=== PATIENT | male | born 1980 | race American Indian/Alaskan Native ===

== ENCOUNTER 2016-09-30 12:26 | Emergency (ER) | payer SELFPAY ==
[~2016-09-30] VITALS: Ht 160 cm; Wt 107.5 kg
[2016-09-30 13:01] VITALS: Ht 160 cm; Wt 107.5 kg
[2016-09-30] MEDS ORDERED: DEXAMETHASONE 10 MG/ML 1 ML INJ IM ONE (14:00)
[2016-09-30] MEDS ORDERED: KETOROLAC 60 MG INJ IM STA (14:00)
[2016-09-30] MEDS ORDERED: IBUP-1542 PO (14:02)
[2016-09-30] MEDS ORDERED: AMO500 PO (14:02)
[2016-09-30] MEDS ORDERED: ACET1TAB40 PO (14:02)
--- NOTE | 2016-09-30 14:06 | ERD ---
ER Documentation Chief Complaint Date/Time DATE: 09/30/16 TIME: 14:04 Chief Complaint Pt with Fever, ST, CROSS , body ache X last night. HPI This 36-year-old male presents with fever and sore throat and body aches starting last night. ROS All systems reviewed and are negative except as per history of present illness. Medications Home Meds Active Scripts Ibuprofen* (Motrin*) 600 Mg Tab, 600 MG PO Q6, #15 TAB Prov:RAMAN FROST MD 09/30/16 Acetaminophen with Codeine (Acetaminophen-Cod #3 Tablet) 1 Each Tablet, 1 TAB PO Q6H Y for PAIN, #7 TAB Prov:RAMAN FROST MD 09/30/16 Amoxicillin* (Amoxicillin*) 500 Mg Cap, 500 MG PO TID for 10 Days, CAP Prov:RAMAN FROST MD 09/30/16 Physical Exam Vitals Vital Signs Date Time Temp Pulse Resp B/P Pulse Ox O2 Delivery O2 Flow Rate FiO2 09/30/16 13:01 99.4 97 20 131/79 98 Physical Exam Const: [] Alert, [id number]. Head: Atraumatic Eyes: Normal Conjunctiva ENT: Normal External Ears, Nose and Mouth. Tonsils 3+ and airway patent and uvula midline. Tender anterior cervical lymphadenitis Neck: Full range of motion..~ No meningismus. Resp: Clear to auscultation bilaterally Cardio: Regular rate and rhythm, no murmurs Abd: Soft, non tender, non distended. Normal bowel sounds Skin: No petechiae or rashes Back: No midline or flank tenderness Ext: No cyanosis, or edema Neur: Awake and alert Psych: Normal Mood and Affect Results 24 hrs Current Medications Medications (Trade) Dose Ordered Sig/Delon Route PRN Reason Start Time Stop Time Status Last Admin Dose Admin Ketorolac Tromethamine (Toradol) 60 mg ONCE STAT IM 09/30/16 14:00 09/30/16 14:01 Dexamethasone (Decadron) 10 mg ONCE ONCE IM 09/30/16 14:00 09/30/16 14:01 Procedures/MDM Patient was given Toradol 60 mg IM and Decadron 10 mg IM. Patient has signs and symptoms of acute pharyngitis without evidence of abscess, obstruction or hypoxemia. He will be treated with amoxicillin, ibuprofen 10 #3 at home. The patient was stable with no new complaints during the ER course. Clinically, there is no current evidence to suggest meningitis, sepsis, acute abdomen, pneumonia, acute coronary syndrome, pulmonary embolism, or any other emergent condition appearing to require further evaluation or hospitalization. The patient should certainly return for any new or worsening symptoms per the aftercare instructions. They should otherwise follow-up with her primary care doctor for reevaluation this week. Departure Diagnosis: Primary Impression: Pharyngitis Pharyngitis/tonsillitis etiology: unspecified etiology Qualified Code: J02.9 - Pharyngitis, unspecified etiology Condition: Stable Patient Instructions: Fever Control (Adult), Pharyngitis, Strep (Presumed) Additional Instructions: Cheque otro vez con almeida doctor primario en el proximo soler or regresa para mas o nueva simptomas. RAMAN FROST MD September 30, 2016 14:06
[2016-09-30 14:29] VITALS: BP 124/75; PULSE 95; RESP 21; TEMP 98.8
== END 2016-09-30 14:29 | disposition home or self-care (01) ==
LOC: FTE 12:26
DX: J02.9 Acute pharyngitis, unspecified (principal)
CPT/HCPCS: 96372; 99284; J1100; J1885

== ENCOUNTER 2017-06-16 11:47 | Emergency (ER) | END 2017-06-16 13:10 | disposition home or self-care (01) ==